=== PATIENT | female | born 1965 | race Caucasian/White ===

== ENCOUNTER 2017-04-23 11:43 | Emergency (ER) | payer SELFPAY ==
[2017-04-23 11:52] VITALS: BP 147/97; PULSE 80; TEMP 98.6; BMI 32.8
[2017-04-23] MEDS ORDERED: IBUPROFEN 400 MG TABLET (FP) PO ONE (12:12)
--- NOTE | 2017-04-23 12:30 | PDOC ---
History of Present Illness - General Chief Complaint: Respiratory Stated Complaint: HEADACHES Time Seen by Provider: 04/23/17 11:53 History Source: Patient, Spouse Exam Limitations: Language Barrier - History of Present Illness Initial Comments: 04/23/17 12:30 52 yr female with c/o sore throat headache body aches for 3 days . took tylenol last night no abd pain neg nvd. no PMHX. no surgical history , with similair complaints last week. Severity: reports: moderate Past History - Past Medical History Allergies/Adverse Reactions: Allergies Allergy/AdvReac Type Severity Reaction Status Date / Time No Known Allergies Allergy Verified 04/23/17 11:52 Home Medications: Ambulatory Orders Oseltamivir Phosphate [Tamiflu] 75 mg PO BID #10 capsule 06/28/15 Phenylephrine/Dm/Acetaminop/GG [Mucinex Oufh-Zaf-Vmzhaogrpm Lq] 177 ml PO PRN PRN 06/28/15 Benzocaine/Menthol [Cepacol Sore Throat Lozenge] 1 each MM QID #15 lozenge 04/23 COPD: No - Suicide/Smoking/Psychosocial Hx Smoking History: Never smoked Have you smoked in the past 12 months: No Hx Alcohol Use: No Drug/Substance Use Hx: No Substance Use Type: None Respiratory Specific PMHX - Complaint Specific PMHX Angina: No Bronchitis: No Pneumonia: No Pulmonary Embolus: No TB (Tuberculosis): No Review of Systems - Review of Systems Able to Perform ROS?: Yes Is the patient limited Albanian proficient: Yes Constitutional: Yes: Symptoms Reported HEENTM: Yes: Symptoms Reported Respiratory: Yes: Symptoms reported *Physical Exam - Vital Signs Last Vital Signs Temp Pulse Resp BP Pulse Ox 98.6 F 80 18 147/97 100 04/23/17 11:50 04/23/17 11:50 04/23/17 11:50 04/23/17 11:50 04/23/17 11:50 - Physical Exam General Appearance: Yes: Nourished, Appropriately Dressed HEENT: positive: EOMI, ROSMERY, Pharyngeal Erythema, Tonsillar Erythema, TM Erythema Neck: positive: Supple. negative: Lymphadenopathy (R), Lymphadenopathy (L) Respiratory/Chest: positive: Lungs Clear, Normal Breath Sounds. negative: Crackles, Rales, Stridor, Wheezing Cardiovascular: positive: Regular Rhythm, Regular Rate Gastrointestinal/Abdominal: positive: Normal Bowel Sounds, Soft. negative: Tender Musculoskeletal: positive: Normal Inspection Extremity: positive: Normal Capillary Refill, Normal Inspection, Normal Range of Motion Integumentary: positive: Normal Color, Dry, Warm. negative: Rash Neurologic: positive: Fully Oriented, Alert, Normal Mood/Affect, Normal Response , Motor Strength 5/5 Medical Decision Making - Medical Decision Making 04/23/17 12:32 cc: sore throat headache body aches neg abd pain neg nvd will check for strep motrin now for pain *DC/Admit/Observation/Transfer Diagnosis at time of Disposition: Influenza - Discharge Dispostion Disposition: HOME - Prescriptions Prescriptions: Benzocaine/Menthol [Cepacol Sore Throat Lozenge] 1 each MM QID #15 lozenge - Referrals Referrals: [facility] [Provider Group] - Patient Instructions Printed Discharge Instructions: DI for Influenza -- Adult Additional Instructions: follow with the clinic this week drink pleanty of fluids to stay hydrated take ibuprofen every 6hrs for fever or pain gargle with warm salt water 4-5 times a day use the cepacol throat lozengers as directed Return to ER for any worsening symptoms Print Language: SAO TOMEAN - Post Discharge Activity
== END 2017-04-23 13:09 | disposition home or self-care (01) ==
LOC: JERFT 11:43
DX: J11.1 Influenza due to unidentified influenza virus with other respiratory manifestations (principal)
CPT/HCPCS: 87070; 87077; 87430; 99281-25